=== PATIENT | female | born 1955 | race African-American/Black ===

== ENCOUNTER 2020-11-12 13:48 | Inpatient (IN) ==
[2020-11-12] MEDS ORDERED: ALBUTEROL 2.5 MG/3 ML NEB RESP TX PRN (18:36)
[2020-11-12] MEDS ORDERED: MORPHINE 4 MG/1 ML VIAL IV PRN (18:36)
[2020-11-12] MEDS ORDERED: ONDANSETRON 4 MG/2 ML VIAL IV PRN (18:36)
[2020-11-12] MEDS ORDERED: NOREPINEPHRINE 8 MG in SODIUM CHLORIDE 0.9% 242 ML IV SCH (22:30)
[2020-11-12 22:38] LABS: Basophils % 0.1 % (0.0-0.8); Eosinophils % 0.1 % (0.00-10.9); Hematocrit 24.3 VOL% (35.7-47.0); Hemoglobin 7.7 GM/DL (12.0-16.0); Immature Granulocytes % 0.7 %; Immature Granulocytes Absolute 0.09 #; Lymphocytes # 1.4 10*3/uL (1.4-4.0); Lymphocytes % 11.2 % (21.3-54.2); Mean Corpuscular HGB Conc 31.7 GM/DL (32-36); Mean Corpuscular Volume 86.5 FL (87-102); Mean Platelet Volume 9.2 FL (9.6-12.0); Monocytes % 4.4 % (1.7-12.7); NRBC # 0.05 10*3/uL; Neutrophils % 83.5 % (38.7-73.9); Platelet Count 174 T/CUMM (130-400); Red Blood Count 2.81 MC/CUMM (3.8-5.5); Red Cell Distribution Width 21.4 % (9.3-17.3); White Blood Count 12.2 T/CUMM (4-12)
[2020-11-12] MEDS ORDERED: NOREPINEPHRINE 4 MG/4 ML VIAL IV ONE (22:39)
[2020-11-12 22:47] LABS: INR 1.9; PT Patient Result 19.6 SECS (9.8-11.9)
[2020-11-12] MEDS ORDERED: INFLUENZA VIRUS VACCINE 0.5 ML SYRINGE IM ONE (22:54)
[2020-11-12 23:11] LABS: Alanine Aminotransferase 60 U/L (13-56); Albumin 1.2 G/DL (3.4-5.0); Alkaline Phosphatase 140 U/L (45-117); Aspartate Amino Transferase 47 U/L (0-37); Blood Urea Nitrogen 16 MG/DL (7-18); Calcium 6.4 MG/DL (8.5-10.1); Carbon Dioxide 13 MMOL/L (21-32); Estimated Glom Filtration Rate 11 ML/MIN; Glucose 121 MG/DL (74-106); Potassium 2.9 MMOL/L (3.5-5.1); Sodium 143 MMOL/L (136-145); Total Protein 4.7 G/DL (6.4-8.3)
[2020-11-12 23:14] LABS: Lactic Acid 6.9 MMOL/L (0.4-2.0)
[2020-11-12] MEDS ORDERED: SODIUM BICARBONATE 50 MEQ/50 ML VIAL IV ONE (23:17)
[2020-11-12] MEDS ORDERED: SODIUM CHLORIDE 0.9% 1,000 ML IV ONE (23:19)
[2020-11-12] MEDS: PANTOPRAZOLE 40 MG VIAL IV SCH (23:30)
[2020-11-13] MEDS ORDERED: SODIUM CHLORIDE 0.9% 1,000 ML IV ONE (02:19)
[2020-11-13 04:28] LABS: Basophils % 0.1 % (0.0-0.8); Eosinophils % 0.1 % (0.00-10.9); Hematocrit 23.7 VOL% (35.7-47.0); Hemoglobin 7.7 GM/DL (12.0-16.0); Immature Granulocytes % 0.7 %; Immature Granulocytes Absolute 0.09 #; Lymphocytes # 0.9 10*3/uL (1.4-4.0); Lymphocytes % 7.5 % (21.3-54.2); Mean Corpuscular HGB Conc 32.5 GM/DL (32-36); Mean Corpuscular Volume 84.9 FL (87-102); Mean Platelet Volume 9.3 FL (9.6-12.0); Monocytes % 3.5 % (1.7-12.7); NRBC # 0.03 10*3/uL; Neutrophils % 88.1 % (38.7-73.9); Platelet Count 187 T/CUMM (130-400); Red Blood Count 2.79 MC/CUMM (3.8-5.5); Red Cell Distribution Width 20.9 % (9.3-17.3); White Blood Count 12.6 T/CUMM (4-12)
[2020-11-13 04:39] LABS: INR 1.7
[2020-11-13 04:44] LABS: Calcium 6.4 MG/DL (8.5-10.1); Osmolality,Calculated 288.8 MOS/KG (273-304); Potassium 2.8 MMOL/L (3.5-5.1)
[2020-11-13 05:10] LABS: Alanine Aminotransferase 64 U/L (13-56); Albumin 1.1 G/DL (3.4-5.0); Alkaline Phosphatase 140 U/L (45-117); Aspartate Amino Transferase 47 U/L (0-37); Bilirubin,Indirect 0.2 MG/DL (0.0-1.0); HDL Cholesterol < 10 MG/DL (40-60); Total Protein 4.6 G/DL (6.4-8.3); Triglycerides 136 MG/DL (2-150); VLDL CHOLESTEROL 27.2 MG/DL
[2020-11-13] MEDS ORDERED: SODIUM BICARBONATE 50 MEQ/50 ML VIAL IV ONE ×5 (05:19→23:18)
[2020-11-13 05:28] LABS: Bacteria,Urine Many /HPF (Few); Bilirubin,Urine Negative (Negative); Blood, Urine Moderate mg/dL (Negative); Glucose,Urine (UA) Negative (Negative); Hyaline Casts,Urine 31 /LPF (0-3); Ketones,Urine Negative (Negative); Nitrite,Urine Negative (Negative); Protein,Urine 100 MG/DL; RBC,Urine 33 /HPF (0-4); Squamous Epithelial Cell,Urine Few /HPF (0-10); Urine Appearance CLOUDY (Clear); Urine Color Yellow (Yellow); Urine Specific Gravity 1.013 (1.001-1.035); Urine Urobilinogen < 2.0 EU/DL (0.2-1.0); WBC,Urine 4578 /HPF (0-6)
[2020-11-13] MEDS ORDERED: MEROPENEM 500 MG in SODIUM CHLORIDE 0.9% 100 ML IV SCH (09:00)
[2020-11-13] MEDS ORDERED: VANCOMYCIN INJ 1,500 MG in SODIUM CHLORIDE 0.9% 500 ML IV ONE (09:30)
[2020-11-13] MEDS ORDERED: ALBUMIN 5% 12.5 GM in PREMIX 1 EACH IV ONE (10:37)
[2020-11-13] MEDS ORDERED: ALBUMIN 25% 12.5 GM in PREMIX 1 EACH IV ONE ×2 (10:37→12:30)
[2020-11-13] MEDS: NOREPINEPHRINE 16 MG in SODIUM CHLORIDE 0.9% 234 ML IV PRN ×3 (10:50→23:23)
[2020-11-13 11:31] LABS: Hepatitis B Core IgM Quant 0.52 Index; Hepatitis B Surface Ag Quant < 0.10 Index; Hepatitis B Surface Ag Result Non-Reactive (NonReactive); Hepatitis C Virus Ab Quant 0.09 Index; Hepatitis C Virus Ab Result Non-Reactive (NonReactive)
[2020-11-13] MEDS ORDERED: HEPARIN 10,000 UNIT/10 ML VIAL IV PRN (11:56)
[2020-11-13] MEDS: HYDROCORTISONE 100 MG VIAL IV SCH ×3 (13:00→21:50)
[2020-11-13] MEDS: MEROPENEM 1,000 MG in SODIUM CHLORIDE 0.9% 100 ML IV SCH (13:00)
[2020-11-13] MEDS: ENOXAPARIN 30 MG/0.3 ML SYRINGE SUBCUT SCH (14:01)
[2020-11-13] MEDS ORDERED: EPOETIN ALFA-EPBX 10,000 UNIT/ML VIAL IV PRN (14:29)
[2020-11-13] MEDS: PHENYLEPHRINE DRIP 40 MG/250 ML PREMIX IV PRN ×2 (17:15→19:42)
[2020-11-13] MEDS ORDERED: SODIUM CHLORIDE 0.9% 500 ML IV ONE (18:32)
[2020-11-13] MEDS ORDERED: CALCIUM CHLORIDE 1,000 MG/10 ML SYRINGE IV ONE ×2 (19:25→19:27)
[2020-11-13] MEDS ORDERED: MAGNESIUM SULF RIDER 50 ML IV ONE (19:26)
[2020-11-13] MEDS ORDERED: ROCURONIUM 100 MG/10 ML VIAL IV ONE (19:27)
[2020-11-13] MEDS ORDERED: ETOMIDATE 20 MG/10 ML VIAL IV ONE ×2 (19:28→19:37)
[2020-11-13] MEDS ORDERED: DEXTROSE 50% 25 GM/50 ML VIAL IV ONE ×2 (19:28→19:30)
[2020-11-13] MEDS ORDERED: VASOPRESSIN 100 UNITS in SODIUM CHLORIDE 0.9% 95 ML IV PRN (19:41)
[2020-11-13 19:44] LABS: Basophils % 0.1 % (0.0-0.8); Hematocrit 21.5 VOL% (35.7-47.0); Hemoglobin 7.1 GM/DL (12.0-16.0); Immature Granulocytes % 0.5 %; Immature Granulocytes Absolute 0.06 #; Lymphocytes # 0.5 10*3/uL (1.4-4.0); Lymphocytes % 3.6 % (21.3-54.2); Mean Corpuscular Volume 84.3 FL (87-102); Mean Platelet Volume 9.2 FL (9.6-12.0); Monocytes % 1.6 % (1.7-12.7); NRBC # 0.05 10*3/uL; Neutrophils % 94.2 % (38.7-73.9); Platelet Count 169 T/CUMM (130-400); Red Blood Count 2.55 MC/CUMM (3.8-5.5); White Blood Count 12.6 T/CUMM (4-12)
[2020-11-13] MEDS ORDERED: MIDAZOLAM 100 MG in SODIUM CHLORIDE 0.9% 80 ML IV PRN (19:51)
[2020-11-13 20:03] LABS: Band Neutrophils 2 % (0-10); Lymphocytes 1 % (20-55); Nucleated Red Blood Cells 1 (0-5); Segmented Neutrophils 96 % (50-85); Total Cells Counted 100
[2020-11-13 20:04] LABS: Alanine Aminotransferase 67 U/L (13-56); Albumin 1.4 G/DL (3.4-5.0); Alkaline Phosphatase 136 U/L (45-117); Aspartate Amino Transferase 46 U/L (0-37); Blood Urea Nitrogen 10 MG/DL (7-18); Burr Cells 1+; Calcium 8.5 MG/DL (8.5-10.1); Carbon Dioxide 15 MMOL/L (21-32); Estimated Glom Filtration Rate 19 ML/MIN; Glucose 131 MG/DL (74-106); Hypochromasia 2+; Osmolality,Calculated 292.4 MOS/KG (273-304); Polychromasia 1+; Potassium 2.9 MMOL/L (3.5-5.1); Sodium 147 MMOL/L (136-145); Target Cells 1+; Total Protein 4.5 G/DL (6.4-8.3)
[2020-11-13 20:05] LABS: Anisocytosis 1+; Platelet Estimate Adequate; Schistocytes 1+; Troponin I 0.054 NG/ML (0.00-0.045)
[2020-11-13 20:14] LABS: ABG Base Excess -13.3 MMOL/L (-2.5-2.5); ABG HCO3 13.9 MMOL/L (20-26); ABG PCO2 29.9 MM HG (35-48); ABG PH 7.245 (7.35-7.45); ABG TCO2 12.4 MMOL/L (23-27)
[2020-11-13] MEDS ORDERED: MAGNESIUM SULF RIDER 2 GM in PREMIX 1 EACH IV ONE (20:18)
[2020-11-13] MEDS: POTASSIUM CHLORIDE RIDER 20 MEQ in PREMIX 1 EACH IV SCH ×2 (20:22→22:06)
[2020-11-13] MEDS ORDERED: POTASSIUM CHLORIDE RIDER 200 ML IV ONE (20:22)
[2020-11-13] MEDS: PANTOPRAZOLE 40 MG VIAL IV SCH (21:52)
[2020-11-13] MEDS: PHENYLEPHRINE INJ 160 MG in SODIUM CHLORIDE 0.9% 234 ML IV PRN (22:03)
[2020-11-14 01:15] LABS: ABG Base Excess -12.3 MMOL/L (-2.5-2.5); ABG HCO3 14.7 MMOL/L (20-26); ABG PCO2 22.4 MM HG (35-48); ABG PH 7.347 (7.35-7.45); ABG TCO2 11.5 MMOL/L (23-27)
[2020-11-14] MEDS: HYDROCORTISONE 100 MG VIAL IV SCH ×3 (04:21→14:26)
[2020-11-14 05:18] LABS: Hematocrit 23.7 VOL% (35.7-47.0); Hemoglobin 7.8 GM/DL (12.0-16.0); Immature Granulocytes % 0.7 %; Immature Granulocytes Absolute 0.09 #; Lymphocytes # 0.7 10*3/uL (1.4-4.0); Lymphocytes % 5.4 % (21.3-54.2); Mean Corpuscular HGB Conc 32.9 GM/DL (32-36); Mean Corpuscular Volume 85.3 FL (87-102); Mean Platelet Volume 9.5 FL (9.6-12.0); NRBC # 0.08 10*3/uL; Neutrophils % 91.9 % (38.7-73.9); Platelet Count 174 T/CUMM (130-400); Red Blood Count 2.78 MC/CUMM (3.8-5.5); Red Cell Distribution Width 21.3 % (9.3-17.3); White Blood Count 13.6 T/CUMM (4-12)
[2020-11-14 05:40] LABS: Burr Cells Slight; Calcium 7.1 MG/DL (8.5-10.1); Hypochromasia 1+; Lymphocytes 2 % (20-55); Macrocytosis Slight; Nucleated Red Blood Cells 1 (0-5); Osmolality,Calculated 290.6 MOS/KG (273-304); Platelet Estimate Adequate; Polychromasia Slight; Potassium 3.3 MMOL/L (3.5-5.1); Segmented Neutrophils 97 % (50-85); Total Cells Counted 100
[2020-11-14] MEDS: PHENYLEPHRINE INJ 160 MG in SODIUM CHLORIDE 0.9% 234 ML IV PRN ×2 (06:15→12:48)
[2020-11-14] MEDS: NOREPINEPHRINE 16 MG in SODIUM CHLORIDE 0.9% 234 ML IV PRN (06:40)
[2020-11-14 07:08] VITALS: BP 66/53
[2020-11-14] MEDS ORDERED: VANCOMYCIN INJ 1,000 MG in SODIUM CHLORIDE 0.9% 250 ML IV ONE (09:00)
[2020-11-14] MEDS: MEROPENEM 1,000 MG in SODIUM CHLORIDE 0.9% 100 ML IV SCH (09:25)
[2020-11-14] MEDS: ENOXAPARIN 30 MG/0.3 ML SYRINGE SUBCUT SCH (09:26)
[2020-11-14] MEDS ORDERED: GENTAMICIN INJ 160 MG in SODIUM CHLORIDE 0.9% 100 ML IV ONE (10:00)
[2020-11-14] MEDS ORDERED: SODIUM BICARB INJ 150 MEQ in STERILE WATER INJ 850 ML IV SCH (11:00)
[2020-11-14] MEDS ORDERED: DESITIN 4OZ/NYSTATIN 15 GRAM MIXTURE PASTE TOP SCH (13:30)
[2020-11-14] MEDS: MORPHINE 4 MG/1 ML VIAL IV PRN ×2 (14:24→16:50)
[2020-11-14] MEDS ORDERED: MINERAL OIL/PETROLATUM OPH OINT 3.5 GM TUBE BOTH EYES PRN (17:08)
== END 2020-11-14 18:06 | disposition expired | DRG 871 ==
LOC: N.ICU 21:59 → SUATTDRO 21:59
PROVIDERS: ADMIT Internal Medicine; ATTEND Internal Medicine